=== PATIENT | male | born 1965 | race Two or more races ===

== ENCOUNTER 2017-03-03 22:26 | Emergency (ER) | payer OTHER ==
[~2017-03-03] VITALS: Ht 180.3 cm; Wt 83.9 kg
--- NOTE | 2017-03-03 22:55 | NUR ---
PT PRESENTED TO THE ER WITH A C/O RLQ ABD PAIN. TENDERNESS UPON PALPATION BY .
[2017-03-03] MEDS ORDERED: MORPHINE SULFATE INJ 2 MG/ML DISP.SYRIN IV ONE (23:00)
[2017-03-03] MEDS ORDERED: IV NS 0.9% 500 ML BAG IV ONE (23:00)
[2017-03-03] MEDS ORDERED: ONDANSETRON HCL/PF 4 MG/2 ML VIAL IVP ONE (23:00)
[2017-03-03] MEDS ORDERED: IV SET PRIMARY 1 EA INFUS.SET MC ONE (23:06)
[2017-03-03] MEDS ORDERED: ONDANSETRON HCL/PF 4 MG/2 ML VIAL ONE (23:06)
[2017-03-03] MEDS ORDERED: MORPHINE SULFATE INJ 4 MG/ML DISP.SYRIN ONE (23:06)
[2017-03-03] MEDS ORDERED: IV NS 0.9% 500 ML IV ONE (23:06)
[2017-03-03 23:10] LABS: BASOPHILS # (AUTO) 0.1 /CMM (0.0-0.2); BASOPHILS % (AUTO) 0.8 % (0.0-2.0); EOSINOPHILS # (AUTO) 0.2 /CMM (0.0-0.7); EOSINOPHILS % (AUTO) 3.1 % (0.0-6.0); HEMATOCRIT 46 % (39-51); HEMOGLOBIN 15.6 g/dL (13.5-17.5); LYMPHOCYTES # (AUTO) 2.6 /CMM (0.8-4.8); LYMPHOCYTES % (AUTO) 36.6 % (20.0-44.0); MEAN CORPUSCULAR HEMOGLOBIN 30 PG (26.0-33.0); MEAN CORPUSCULAR HGB CONC 34 g/dl (31.0-36.0); MEAN CORPUSCULAR VOLUME 88 fL (80-96); MONOCYTES # (AUTO) 0.7 /CMM (0.1-1.30); MONOCYTES % (AUTO) 10.5 % (2.0-12.0); NEUTROPHILS # (AUTO) 3.4 /CMM (1.8-8.9); PLATELET COUNT (AUTO) 194 /CMM (150-450); RDW COEFFICIENT OF VARIATION 13.1 (11.5-15.0); RED BLOOD CELL COUNT(AUTO) 5.16 MIL/uL (4.5-6.0)
[2017-03-03 23:14] LABS: BILIRUBIN,URINE NEGATIVE (NEGATIVE); BLOOD, URINE NEGATIVE Ery/uL (NEGATIVE); COLOR,URINE YELLOW (YELLOW); KETONES,URINE NEGATIVE (NEGATIVE); LEUKOCYTE ESTERASE ,URINE TRACE (NEGATIVE); NITRITE, URINE NEGATIVE (NEGATIVE); PH,URINE 6.5 (5.0-8.0); PROTEIN,URINE NEGATIVE (NEGATIVE); UGLUCOSE NEGATIVE (NEGATIVE); UROBILINOGEN,URINE 0.2 EU/dL (0.2)
[2017-03-03 23:17] LABS: APPEARANCE,URINE CLEAR (CLEAR)
[2017-03-03 23:20] LABS: CALCIUM, SERUM 8.9 mg/dL (8.5-10.1); CARBON DIOXIDE 29 mmol/L (21-32); CHLORIDE 106 mmol/L (98-107); CREATININE 1.1 mg/dL (0.6-1.3); GFR 70 mL/min (>60); GLUCOSE 109 mg/dL (74-106); SODIUM SERUM 142 mmol/L (136-145); UREA NITROGEN, BLOOD 15 mg/dL (7-18)
[2017-03-03 23:24] LABS: ADD URINE CULTURE NO; BACTERIA,URINE None seen /HPF (None Seen); INR 0.97 (0.87-1.13); PROTHROMBIN TIME 10.4 SECS (9.5-12.7); RBC,URINE 0-2 /HPF (0-2); SQUAMOUS EPITHELIAL CELL,UR Rare /HPF (None Seen); WBC,URINE 1=3 /HPF (0-3)
[2017-03-03 23:25] LABS: MUCUS,URINE Many /LPF (None Seen)
[2017-03-03 23:26] LABS: ALANINE AMINOTRANSFERASE 48 U/L (12-78); ALBUMIN 4.1 g/dL (3.4-5.0); ALKALINE PHOSPHATASE 69 U/L (46-116); ASPARTATE AMINOTRANSFERASE 20 U/L (15-37); BILIRUBIN,DIRECT 0.1 mg/dL (0.0-0.2); BILIRUBIN,TOTAL 0.5 mg/dL (0.2-1.0); LIPASE 148 U/L (73-393)
[2017-03-03 23:28] LABS: TROPONIN I < 0.017 ng/mL (0.00-0.056)
--- NOTE | 2017-03-03 23:32 | NUR ---
PT LEFT FOR CT VIA GURNEY.
[2017-03-03 23:37] LABS: TOTAL PROTEIN, SERUM 7.2 g/dL (6.4-8.2)
--- NOTE | 2017-03-03 23:44 | NUR ---
PT RETURNED FROM CT.
[2017-03-04] MEDS ORDERED: MORPHINE SULFATE INJ 4 MG/ML DISP.SYRIN ONE (00:23)
--- NOTE | 2017-03-04 00:50 | NUR ---
IV removed. Catheter intact and site benign. Pressure and 4x4 applied to site. No bleeding noted.
--- NOTE | 2017-03-04 00:51 | NUR ---
PT IS CALLING [facility] TO PICK HIM UP.
--- NOTE | 2017-03-04 01:06 | NUR ---
Patient discharged to home in stable condition. Written and verbal after care instructions given. Patient verbalizes understanding of instruction. PT REC'D A COPY OF ALL LABS, IMAGING, AND THE EKG. PT AMBULATED TO THE LOBBY TO WAIT FOR [facility] TO ARRIVE. VSS
[2017-03-04 01:08] VITALS: BP 161/97
[2017-03-04] MEDS ORDERED: MORPHINE SULFATE INJ 2 MG/ML DISP.SYRIN IV ONE (01:30)
== END 2017-03-04 01:09 | disposition home or self-care (01) ==
LOC: ER 22:29
DX: R10.30 Lower abdominal pain, unspecified (principal); K76.0 Fatty (change of) liver, not elsewhere classified; Z90.89 Acquired absence of other organs; C18.9 Malignant neoplasm of colon, unspecified
CPT/HCPCS: 36415; 74176; 80048; 80076; 81001; 83690; 84484; 85025; 85730; 93005; 96374; 96375; 96376; 99285; A4606; J2270 ×2; J2405; J7040; Z7610; 81000-TC

== ENCOUNTER 2017-04-07 22:53 | Emergency (ER) | payer OTHER ==
[~2017-04-07] VITALS: Ht 180.3 cm; Wt 83.9 kg
--- NOTE | 2017-04-08 00:23 | NUR ---
to bed 2 ambulatory c/o abdominal pain with abdominal distention since yesterday. pt aaox4 no acute distress noted, resp even and unlabored. pending er md archibald.
--- NOTE | 2017-04-08 00:25 | NUR ---
montez ely at bedside to dragan pederson.
[2017-04-08] MEDS ORDERED: ONDANSETRON HCL/PF 4 MG/2 ML VIAL IVP ONE (00:30)
[2017-04-08] MEDS ORDERED: IV NS 0.9% 500 ML BAG IV ONE (00:30)
[2017-04-08] MEDS ORDERED: MORPHINE SULFATE INJ 2 MG/ML DISP.SYRIN IV ONE (00:30)
--- NOTE | 2017-04-08 00:33 | NUR ---
pt transported to raidiology.
[2017-04-08 00:43] LABS: BASOPHILS % (AUTO) 0.2 % (0.0-2.0); EOSINOPHILS % (AUTO) 0.2 % (0.0-6.0); HEMATOCRIT 42 % (39-51); HEMOGLOBIN 14.5 g/dL (13.5-17.5); LYMPHOCYTES # (AUTO) 1.4 /CMM (0.8-4.8); LYMPHOCYTES % (AUTO) 18.9 % (20.0-44.0); MEAN CORPUSCULAR HEMOGLOBIN 30 PG (26.0-33.0); MEAN CORPUSCULAR HGB CONC 34 g/dl (31.0-36.0); MEAN CORPUSCULAR VOLUME 89 fL (80-96); MONOCYTES # (AUTO) 0.7 /CMM (0.1-1.30); MONOCYTES % (AUTO) 9.2 % (2.0-12.0); NEUTROPHILS # (AUTO) 5.3 /CMM (1.8-8.9); NEUTROPHILS % (AUTO) 71.5 % (43.0-81.0); PLATELET COUNT (AUTO) 195 /CMM (150-450); RED BLOOD CELL COUNT(AUTO) 4.76 MIL/uL (4.5-6.0); WHITE BLOOD COUNT (AUTO) 7.4 K/uL (4.3-11.0)
[2017-04-08 00:54] LABS: CALCIUM, SERUM 8.7 mg/dL (8.5-10.1); CREATININE 0.9 mg/dL (0.6-1.3); POTASSIUM 3.6 mmol/L (3.5-5.1)
--- NOTE | 2017-04-08 00:55 | NUR ---
pt back from radiology
[2017-04-08 01:02] LABS: ALBUMIN 3.8 g/dL (3.4-5.0); BILIRUBIN,DIRECT 0.1 mg/dL (0.0-0.2); BILIRUBIN,TOTAL 0.8 mg/dL (0.2-1.0)
[2017-04-08 01:41] LABS: INR 1.04 (0.87-1.13); PROTHROMBIN TIME 11.1 SECS (9.5-12.7)
[2017-04-08 01:56] LABS: APPEARANCE,URINE CLOUDY (CLEAR); BILIRUBIN,URINE 1+ (NEGATIVE); BLOOD, URINE 3+ Ery/uL (NEGATIVE); COLOR,URINE YELLOW (YELLOW); KETONES,URINE NEGATIVE (NEGATIVE); LEUKOCYTE ESTERASE ,URINE NEGATIVE (NEGATIVE); NITRITE, URINE NEGATIVE (NEGATIVE); PROTEIN,URINE TRACE mg/dl (NEGATIVE); UGLUCOSE NEGATIVE (NEGATIVE)
[2017-04-08 01:59] LABS: RBC,URINE 81-100 /HPF (0-2); WBC,URINE 0-2 /HPF (0-3)
[2017-04-08 02:00] LABS: ADD URINE CULTURE NO; BACTERIA,URINE None seen /HPF (None Seen); MUCUS,URINE Rare /LPF (None Seen); SQUAMOUS EPITHELIAL CELL,UR Rare /HPF (None Seen)
[2017-04-08 02:39] VITALS: BP 137/79
--- NOTE | 2017-04-08 02:39 | NUR ---
IV removed. Catheter intact and site benign. Pressure and 4x4 applied to site. No bleeding noted. Patient discharged to home in stable condition. Written and verbal after care instructions given. Patient verbalizes understanding of instruction. ambulatory with a steady gait
== END 2017-04-08 02:40 | disposition home or self-care (01) ==
LOC: ER 22:53
DX: R10.84 Generalized abdominal pain (principal); G89.29 Other chronic pain; K76.0 Fatty (change of) liver, not elsewhere classified; M54.9 Dorsalgia, unspecified; Z85.038 Personal history of other malignant neoplasm of large intestine; Z90.89 Acquired absence of other organs
CPT/HCPCS: 36415; 74176; 80048; 80076; 81001; 83690; 85025; 85730; 99285; A4606; Z7610; 81000-TC

== ENCOUNTER 2021-06-21 10:23 | Inpatient (IN) | payer SELFPAY, OTHER ==
[~2021-06-21] VITALS: Ht 180.3 cm; Wt 94.8 kg
--- NOTE | 2021-06-21 10:35 | NUR ---
BIB RA FROM HOME,WORSENING COUGH AND RIGHT LOWER RIBCAGE PAIN,TESTED (+) TO COVID 19 , C/O RIGHT EAR PAIN 10/10, HAVING TROUBLE CATCHING BREATH. ALERT AND ORIENTED X4. IV STARTED AT LEFT AC 20G. BLOOD WORK TAKEN AND SENT TO LAB.
--- NOTE | 2021-06-21 10:38 | NUR ---
DR WEBSTER AT BEDSIDE.
--- NOTE | 2021-06-21 10:40 | NUR ---
COVID TEST TAKEN, AND SENT TO LAB.
[2021-06-21] MEDS ORDERED: KETOROLAC TROMETHAMINE INJ 30 MG/ML VIAL ONE (10:54)
--- NOTE | 2021-06-21 10:58 | NUR ---
URINE SENT TO LAB
[2021-06-21 11:00] LABS: BASOPHILS % (AUTO) 0.3 % (0.0-2.0); HEMATOCRIT 42 % (39-51); HEMOGLOBIN 14.6 g/dL (13.5-17.5); LYMPHOCYTES # (AUTO) 1.3 K/uL (0.8-4.8); LYMPHOCYTES % (AUTO) 27.1 % (20.0-44.0); MEAN CORPUSCULAR HGB CONC 35 g/dl (31.0-36.0); MEAN CORPUSCULAR VOLUME 85 fL (80-96); MONOCYTES # (AUTO) 0.3 K/uL (0.1-1.30); MONOCYTES % (AUTO) 5.4 % (2.0-12.0); NEUTROPHILS # (AUTO) 3.2 K/uL (1.8-8.9); NEUTROPHILS % (AUTO) 67.2 % (43.0-81.0); PLATELET COUNT (AUTO) 176 K/uL (150-450); RED BLOOD CELL COUNT(AUTO) 4.99 MIL/uL (4.5-6.0); WHITE BLOOD COUNT (AUTO) 4.7 K/uL (4.3-11.0)
[2021-06-21] MEDS ORDERED: KETOROLAC TROMETHAMINE INJ 30 MG/ML VIAL IV ONE (11:00)
[2021-06-21 11:10] LABS: CARBON DIOXIDE 24 mmol/L (21-32); CHLORIDE 103 mmol/L (98-107); GLUCOSE 96 mg/dL (74-106); POTASSIUM 3.6 mmol/L (3.5-5.1); SODIUM SERUM 140 mmol/L (136-145); UREA NITROGEN, BLOOD 15 mg/dL (7-18)
[2021-06-21 11:16] LABS: ALANINE AMINOTRANSFERASE 27 U/L (12-78); ALBUMIN 3.5 g/dL (3.4-5.0); ALKALINE PHOSPHATASE 67 U/L (46-116); ASPARTATE AMINOTRANSFERASE 24 U/L (15-37); BILIRUBIN,DIRECT 0.2 mg/dL (0.0-0.2); BILIRUBIN,TOTAL 0.6 mg/dL (0.2-1.0); TOTAL PROTEIN, SERUM 7.5 g/dL (6.4-8.2)
[2021-06-21 11:24] LABS: BILIRUBIN,URINE SMALL (NEGATIVE); COLOR,URINE YELLOW (YELLOW); LEUKOCYTE ESTERASE ,URINE Negative (NEGATIVE); NITRITE, URINE Negative (NEGATIVE); PROTEIN,URINE 30 mg/dl (NEGATIVE); UGLUCOSE Negative (NEGATIVE)
[2021-06-21 11:29] LABS: BACTERIA,URINE Few /HPF (None Seen); MUCUS,URINE Few /LPF (None Seen); WBC,URINE 0-2 /HPF (0-3)
[2021-06-21] MEDS ORDERED: DEXAMETHASONE SOD PHOSPHATE 10 MG/ML VIAL IV ONE (11:30)
[2021-06-21] MEDS ORDERED: DEXAMETHASONE SOD PHOSPHATE 10 MG/ML VIAL ONE (12:00)
--- NOTE | 2021-06-21 12:20 | NUR ---
PANEL ON-CALL PAGED
--- NOTE | 2021-06-21 12:28 | NUR ---
MOVE SHEET SUBMITTED.
--- NOTE | 2021-06-21 13:33 | NUR ---
PATIENT WILL GO TO RM 110.
--- NOTE | 2021-06-21 13:34 | NUR ---
ROOM GIVEN 110
--- NOTE | 2021-06-21 13:51 | NUR ---
REPORT GIVEBN TO IRVIN ASHLEY FOR LISETTE
--- NOTE | 2021-06-21 14:31 | NUR ---
patient transferred to room 110 in stable condition.
--- NOTE | 2021-06-21 14:35 | NUR ---
RN NOTE RECEIVED PATIENT FROM ER FOR ADMISSION TO ROOM 110.
[2021-06-21] MEDS ORDERED: ONDANSETRON HCL/PF 4 MG/2 ML VIAL IVP PRN (15:30)
[2021-06-21] MEDS ORDERED: ACETAMINOPHEN 325 MG TABLET PO PRN (15:30)
[2021-06-21] MEDS ORDERED: MAGNESIUM HYDROXIDE 30 ML UDC PO PRN (15:30)
[2021-06-21] MEDS ORDERED: MAG HYDROX/AL HYDROX/SIMETH 30 ML UDC PO PRN (15:30)
[2021-06-21] MEDS ORDERED: ZOLPIDEM TARTRATE 5 MG TABLET PO PRN (15:30)
[2021-06-21] MEDS ORDERED: Z GUARD REMEDY 2 OZ OINT TP PRN (15:30)
[2021-06-21 16:00] VITALS: BP 103/72
[2021-06-21] MEDS: CEFTRIAXONE 1 G in IV D5W 50 ML IV SCH (16:23)
[2021-06-21] MEDS: ENOXAPARIN SODIUM 40 MG/0.4 ML DISP.SYRIN SQ SCH (16:31)
--- NOTE | 2021-06-21 18:27 | NUR ---
RN NOTE PATIENT OBSERVED IN BED, ALERT/ORIENTED X4, ABLE TO VERBALIZE NEEDS, BREATHING EVEN AND UNLABORED, ON O2 VIA NC AT 3 LMP O2 SAT OF 98% CONTINENT ON BOWEL AND BLADDER, ON ATB THERAPY NO ASE NOTED, IV ON LEFT AC GAUGE 20 PATENT INFUSING WELL, PATIENT ON DECADRON STEROID ORDERED, BED ALARM ON, CALL LIGHT WITHIN REACH, BED WHEELS LOCK, WILL CONTINUE TO MONITOR, WILL ENDORSE TO NOC SHIFT.
[2021-06-22 04:00] VITALS: BP 125/57
[2021-06-22 06:53] LABS: CALCIUM, SERUM 8.8 mg/dL (8.5-10.1); CREATININE 1.1 mg/dL (0.6-1.3); MAGNESIUM 2.2 mg/dL (1.8-2.4); POTASSIUM 4.4 mmol/L (3.5-5.1)
[2021-06-22 07:13] LABS: BASOPHILS % (AUTO) 0.1 % (0.0-2.0); HEMATOCRIT 40 % (39-51); HEMOGLOBIN 13.9 g/dL (13.5-17.5); LYMPHOCYTES # (AUTO) 0.6 K/uL (0.8-4.8); LYMPHOCYTES % (AUTO) 9.8 % (20.0-44.0); MEAN CORPUSCULAR HGB CONC 35 g/dl (31.0-36.0); MEAN CORPUSCULAR VOLUME 86 fL (80-96); MONOCYTES # (AUTO) 0.5 K/uL (0.1-1.30); MONOCYTES % (AUTO) 8.9 % (2.0-12.0); NEUTROPHILS # (AUTO) 4.9 K/uL (1.8-8.9); NEUTROPHILS % (AUTO) 81.2 % (43.0-81.0); PLATELET COUNT (AUTO) 189 K/uL (150-450)
--- NOTE | 2021-06-22 07:22 | NUR ---
RN NOTE PATIENT OBSERVED IN BED, ALERT/ORIENTED X4, ABLE TO VERBALIZE NEEDS, BREATHING EVEN AND UNLABORED, ON O2 VIA NC AT 3 LMP O2 SAT OF 97% CONTINENT ON BOWEL AND BLADDER, ON ATB THERAPY NO ASE NOTED, IV ON LEFT AC GAUGE 20 PATENT INFUSING WELL, PATIENT ON DECADRON STEROID ORDERED, BED ALARM ON, CALL LIGHT WITHIN REACH, BED WHEELS LOCK, WILL CONTINUE TO MONITOR,
[2021-06-22 08:00] VITALS: BP 188/77
[2021-06-22] MEDS: DEXAMETHASONE SOD PHOSPHATE 10 MG/ML VIAL IV SCH (08:54)
[2021-06-22] MEDS: ENOXAPARIN SODIUM 40 MG/0.4 ML DISP.SYRIN SQ SCH (08:57)
--- NOTE | 2021-06-22 10:09 | NUR ---
RN NOTE PATIENT SEEN BY DR. GREEN,UPDATED MD REGARDING PATIENT CURRENT CONDITION. PATIENT ON O2 VIA NC 2LPM O2 SAT OF 96%, PER MD OK TO BE ON ROOM AIR KEEP O2 SAT >92%, WILL CONTINUE TO MONITOR.
--- NOTE | 2021-06-22 11:01 | NUR ---
RN NOTE PATIENT SEEN BY DR. TRACY UPDATED REGARDING PATIENT CURRENT CONDITION, WILL CONTINUE TO MONITOR PATIENT.
[2021-06-22] MEDS ORDERED: IOHEXOL-350 100 ML VIAL IV ONE (11:53)
[2021-06-22] MEDS ORDERED: CT SWABBABLE VALVE TRANS SET 1 EA INFUS.SET MC ONE (11:53)
[2021-06-22] MEDS ORDERED: IV NS 0.9% 250 ML IV ONE (11:53)
--- NOTE | 2021-06-22 12:07 | NUR ---
RN NOTE CT PULMONARY ANGIOGRAPHY DONE ORDERED.
[2021-06-22 16:00] VITALS: BP 118/77
[2021-06-22] MEDS: CEFTRIAXONE 1 G in IV D5W 50 ML IV SCH (16:14)
[2021-06-22] MEDS ORDERED: REMDESIVIR (CHARGED) 200 MG, *LOADING DOSE 1 EA in IV NS 0.9% 210 ML IV ONE (18:00)
--- NOTE | 2021-06-22 18:41 | NUR ---
RN NOTE PATIENT OBSERVED IN BED, ALERT/ORIENTED X4, ABLE TO VERBALIZE NEEDS, BREATHING EVEN AND UNLABORED, ON O2 VIA NC AT 2 LMP O2 SAT OF 97%, PATIENT WAS ON ROOM AIR TOLERATED KEEP O2 SATURATION > 92%, PATIENT RESUMED NC AT 2LPM AFTER A FEW HOURS OF BEING ROOM AIR, CONTINENT ON BOWEL AND BLADDER, ON ATB THERAPY NO ASE NOTED, IV ON LEFT AC GAUGE 20 PATENT INFUSING WELL, ON IV REMDESIVIR AT THIS TIME, NO ASE NOTED., PATIENT ON DECADRON STEROID ORDERED, ON BLOOD THINNER NO BLEEDING NOTED, BED ALARM ON, CALL LIGHT WITHIN REACH, BED WHEELS LOCK, WILL CONTINUE TO MONITOR, WILL ENDORSE TO NOC SHIFT.
[2021-06-23 04:00] VITALS: BP 111/80
[2021-06-23 06:53] LABS: BASOPHILS % (AUTO) 0.1 % (0.0-2.0); HEMATOCRIT 39 % (39-51); HEMOGLOBIN 13.7 g/dL (13.5-17.5); LYMPHOCYTES # (AUTO) 0.9 K/uL (0.8-4.8); MEAN CORPUSCULAR HGB CONC 35 g/dl (31.0-36.0); MEAN CORPUSCULAR VOLUME 86 fL (80-96); MONOCYTES # (AUTO) 0.7 K/uL (0.1-1.30); MONOCYTES % (AUTO) 11.5 % (2.0-12.0); NEUTROPHILS # (AUTO) 4.6 K/uL (1.8-8.9); NEUTROPHILS % (AUTO) 74.4 % (43.0-81.0); PLATELET COUNT (AUTO) 207 K/uL (150-450); RED BLOOD CELL COUNT(AUTO) 4.57 MIL/uL (4.5-6.0); WHITE BLOOD COUNT (AUTO) 6.2 K/uL (4.3-11.0)
[2021-06-23 07:20] LABS: ALBUMIN 3.1 g/dL (3.4-5.0); BILIRUBIN,DIRECT 0.2 mg/dL (0.0-0.2); BILIRUBIN,TOTAL 0.4 mg/dL (0.2-1.0); CALCIUM, SERUM 8.3 mg/dL (8.5-10.1); POTASSIUM 3.9 mmol/L (3.5-5.1)
[2021-06-23] MEDS: DEXAMETHASONE SOD PHOSPHATE 10 MG/ML VIAL IV SCH (08:26)
[2021-06-23] MEDS: ENOXAPARIN SODIUM 40 MG/0.4 ML DISP.SYRIN SQ SCH (08:26)
--- NOTE | 2021-06-23 09:26 | NUR ---
RN NOTE HOB AT SEMI FOWLERS POSITION. PATIENT IS ON 2L NC WITH NO SIGNS OF LABORED BREATHING. PATIENT IS AOX4. LAC 18G IS PATENT AND INTACT. BED IS LOCKED IN THE LOWEST POSITION, 3 GUARD RAILS RAISED, CALL ROBERSON WITHIN REACH, AND ALL HOSPITAL SAFETY PRECAUTIONS ARE BEING FOLLOWED. WILL CONTINUE TO MONITOR THROUGHOUT SHIFT.
[2021-06-23] MEDS: HYDROCODONE BIT/HOMATROPINE 5 ML UDC PO PRN (09:45)
[2021-06-23 12:00] VITALS: BP 109/75
[2021-06-23] MEDS: CEFTRIAXONE 1 G in IV D5W 50 ML IV SCH (15:19)
[2021-06-23 16:00] VITALS: BP 111/71
[2021-06-23] MEDS: REMDESIVIR (CHARGED) 100 MG in IV NS 0.9% 100 ML IV SCH (18:42)
--- NOTE | 2021-06-23 18:55 | NUR ---
RN NOTE HOB AT SEMI FOWLERS POSITION. PATIENT IS ON RA NC WITH NO SIGNS OF LABORED BREATHING. PATIENT IS AOX4. LAC 18G IS PATENT AND INTACT. BED IS LOCKED IN THE LOWEST POSITION, 3 GUARD RAILS RAISED, CALL ROBERSON WITHIN REACH, AND ALL HOSPITAL SAFETY PRECAUTIONS ARE BEING FOLLOWED. ALL DUE MEDS GIVEN AND PATIENT REMAINED STABLE THROUGHOUT SHIFT. WILL ENDORSE TO LINER MAN RN.
--- NOTE | 2021-06-23 19:30 | NUR ---
RN OPENING NOTES: RECEIVED PT A/OX4 IN BED RESTING COMFORTABLY. PATIENT IN NO S/SX OF ACUTE DISTRESS AT THIS TIME. NO SOB NOTED. PATIENT'S BREATHING IS EVEN AND UNLABORED. PATIENT IS ON 2L OF OXYGEN VIA NC; TOLERATING WELL. PATIENT ON TELE MONITORING READING SINUS RHYTHM HR IS @60s AT THE TIME OF RECEIVED. PATIENT ON REGULAR DIET; TOLERATES WELL. NOTED IV SITE ON L AC #20 ; PATENT, INTACT AND FLUSHING WELL; NO S/S OF INFECTION OR INFILTRATION. SAFETY MEASURES HAVE BEEN PROVIDED AND IMPLEMENTED. PATIENT BED ALARM IS ON. HEAD OF BED ELEVATED. BED IS LOCKED, IN LOWEST POSITION AND SIDE RAILS UP. CALL LIGHT WITHIN REACH OF THE PATIENT. APPLICABLE ISOLATION PRECAUTIONS IN PLACE. WILL CONTINUE TO MONITOR AND REASSESS FOR ANY CHANGES AND WILL CARRY OUT ANY ONGOING AND ACTIVE MD ORDER.
[2021-06-23 20:00] VITALS: BP 124/75
--- NOTE | 2021-06-23 23:00 | NUR ---
RN NOTES NO NOTED CHANGES IN PATIENT CONDITION AT THIS TIME; PATIENT VITALS STABLE, NO SIGNS OF ACUTE RESPIRATORY DISTRESS. AM PATIENT CARE RENDERED. VALENTINA ASHLEY MADE AWARE. WILL CONTINUE TO MONITOR AND REASSESS FOR ANY CHANGES THROUGHOUT THE SHIFT. Addendum: 06/24/21 at 0433 by PAVITHRA HUANG RN RN NOTES NO CHANGE IN PATIENT CONDITION AT THIS TIME PATIENT VITALS STABLE, NO SIGNS OF ACUTE RESPIRATORY DISTRESS. VALENTINA ASHLEY MADE AWARE. WILL CONTINUE TO MONITOR AND REASSESS FOR ANY CHANGES THROUGHOUT THE SHIFT.
[2021-06-24] VITALS: BP 101/53
[2021-06-24 04:00] VITALS: BP 110/77
--- NOTE | 2021-06-24 04:00 | NUR ---
RN NOTES NO NOTED CHANGES IN PATIENT CONDITION AT THIS TIME; PATIENT VITALS STABLE, NO SIGNS OF ACUTE RESPIRATORY DISTRESS. AM PATIENT CARE RENDERED. SPECIALIST MANAGERS MADE AWARE. WILL CONTINUE TO MONITOR AND REASSESS FOR ANY CHANGES THROUGHOUT THE SHIFT.
[2021-06-24 06:30] LABS: BASOPHILS % (AUTO) 0.1 % (0.0-2.0); EOSINOPHILS % (AUTO) 0.1 % (0.0-6.0); HEMATOCRIT 39 % (39-51); HEMOGLOBIN 13.4 g/dL (13.5-17.5); LYMPHOCYTES # (AUTO) 1.1 K/uL (0.8-4.8); LYMPHOCYTES % (AUTO) 18.3 % (20.0-44.0); MEAN CORPUSCULAR HGB CONC 35 g/dl (31.0-36.0); MEAN CORPUSCULAR VOLUME 86 fL (80-96); MONOCYTES % (AUTO) 16.5 % (2.0-12.0); PLATELET COUNT (AUTO) 233 K/uL (150-450); RED BLOOD CELL COUNT(AUTO) 4.52 MIL/uL (4.5-6.0); WHITE BLOOD COUNT (AUTO) 6.1 K/uL (4.3-11.0)
--- NOTE | 2021-06-24 06:47 | NUR ---
RN CLOSING NOTE: PATIENT REMAINS IN ROOM IN NO SIGNS OF RESPIRATORY DISTRESS, PATIENT STILL ON 2L OF 02 VIA NC; TOLERATING WELL SATURATING @ >95% SP02. SAFETY MEASURES IMPLEMENTED, BED IN LOWEST POSITION, LOCKED, SIDE RAILS UP, CALL LIGHT WITHIN REACH. ALL NEEDS AND ORDERS ADDRESSED DURING THE SHIFT. IV ACCESS MAINTAINED INTACT, SECURED AND FLUSHING WELL. ALL DUE MEDS GIVEN ORDERED & SCHEDULED ; PATIENT TOLERATED WELL. PATIENT KEPT CLEAN AND COMFORTABLE WITHIN THE SHIFT. PATIENT ENDORSED TO INCOMING SHIFT RN WITH STABLE VITAL SIGN AND FOR CONTINUITY OF CARE.
[2021-06-24 06:50] LABS: ALBUMIN 2.9 g/dL (3.4-5.0); BILIRUBIN,DIRECT 0.1 mg/dL (0.0-0.2); BILIRUBIN,TOTAL 0.3 mg/dL (0.2-1.0); CALCIUM, SERUM 8.6 mg/dL (8.5-10.1); POTASSIUM 4.1 mmol/L (3.5-5.1); TOTAL PROTEIN, SERUM 6.7 g/dL (6.4-8.2)
[2021-06-24 08:00] VITALS: BP 110/77
[2021-06-24] MEDS: DEXAMETHASONE SOD PHOSPHATE 10 MG/ML VIAL IV SCH (08:38)
[2021-06-24] MEDS: ENOXAPARIN SODIUM 40 MG/0.4 ML DISP.SYRIN SQ SCH (08:53)
[2021-06-24 09:09] LABS: LYMPHOCYTES % (MANUAL) 19 % (16-48); MONOCYTES % (MANUAL) 12 % (0-11.0); NEUTROPHILS % (MANUAL) 69 (42-76)
[2021-06-24 12:00] VITALS: BP 112/77
[2021-06-24] MEDS: CEFTRIAXONE 1 G in IV D5W 50 ML IV SCH (15:00)
[2021-06-24] MEDS: HYDROCODONE BIT/HOMATROPINE 5 ML UDC PO PRN (15:55)
[2021-06-24 16:00] VITALS: BP 116/71
[2021-06-24] MEDS: REMDESIVIR (CHARGED) 100 MG in IV NS 0.9% 100 ML IV SCH (18:14)
--- NOTE | 2021-06-24 19:30 | NUR ---
RN NOTE PT RECEIVED IN BED, A&OX4. PT CURRENTLY ON 2L OF O2 VIA NC SHOWING NO S/S OF RESPIRATORY DISTRESS. PT IS ON TELE MONITOR WITH HR IN 60s. PT ON REGULAR DIET. PT MENTIONED HOW IV SITE WAS BURNING, ADAPTED PHYSICAL EDUCATION AIDE SHYLA CHANGED IV SITE TO LEFT HAND. IV LINE FLUSHED, PATENT, AND INTACT W/ NO SIGNS OF INFILTRATION. ALL SAFETY MEASURES IMPLEMENTED. BED ALARM ON. CALL LIGHT WITHIN REACH. BED LOCKED AND IN LOWEST POSITION. WILL CONTINUE TO MONITOR THROUGHOUT THE SHIFT.
[2021-06-24 20:00] VITALS: BP 147/57
[2021-06-25] VITALS (8 sets, daily range): BP systolic 105–130; BP diastolic 62–78
--- NOTE | 2021-06-25 06:41 | NUR ---
RN NOTE NO CHANGES IN PT CONDITION THROUGHOUT THE SHIFT. PT IS ON 4L OF 02 VIA NC SHOWING NO S/S OF RESPIRATORY DISTRESS. CURRENTLY A&OX4. PT IS ON TELE MONITOR WITH HR FROM HIGH 50S TO HIGH 60S. SKIN IS INTACT. PT HAS IV LINE ON LEFT, FLUSHED, PATENT, AND INTACT. ALL DUE MEDS GIVEN ORDERED. PT KEPT CLEAN AND COMFORTABLE. ALL SAFETY MEASURES IMPLEMENTED. WILL ENDORSE TO MORNING SHIFT RN FOR LISETTE.
[2021-06-25 06:57] LABS: BASOPHILS % (AUTO) 0.1 % (0.0-2.0); HEMATOCRIT 40 % (39-51); HEMOGLOBIN 13.8 g/dL (13.5-17.5); LYMPHOCYTES # (AUTO) 1.1 K/uL (0.8-4.8); LYMPHOCYTES % (AUTO) 13.8 % (20.0-44.0); MEAN CORPUSCULAR HGB CONC 35 g/dl (31.0-36.0); MEAN CORPUSCULAR VOLUME 85 fL (80-96); MONOCYTES % (AUTO) 13.6 % (2.0-12.0); NEUTROPHILS # (AUTO) 5.6 K/uL (1.8-8.9); NEUTROPHILS % (AUTO) 72.5 % (43.0-81.0); PLATELET COUNT (AUTO) 260 K/uL (150-450); RED BLOOD CELL COUNT(AUTO) 4.69 MIL/uL (4.5-6.0); WHITE BLOOD COUNT (AUTO) 7.7 K/uL (4.3-11.0)
[2021-06-25 06:59] LABS: BILIRUBIN,DIRECT 0.1 mg/dL (0.0-0.2); BILIRUBIN,TOTAL 0.3 mg/dL (0.2-1.0); CALCIUM, SERUM 8.8 mg/dL (8.5-10.1); POTASSIUM 4.1 mmol/L (3.5-5.1)
--- NOTE | 2021-06-25 07:30 | NUR ---
RN AM NOTES: PT IN BED, PT A/OX4 IN BED RESTING COMFORTABLY. PATIENT IN NO S/SX OF ACUTE DISTRESS AT THIS TIME. NO SOB NOTED. PATIENT'S BREATHING IS EVEN AND UNLABORED. PATIENT IS ON 4L OF OXYGEN VIA NC; TOLERATING WELL. PATIENT ON TELE MONITORING READING SINUS RHYTHM HR IS @60s AT THE TIME OF RECEIVED. PATIENT ON REGULAR DIET; TOLERATES WELL. NOTED IV SITE ON L AC #20 ; PATENT, INTACT AND FLUSHING WELL; NO S/S OF INFECTION OR INFILTRATION. SAFETY MEASURES HAVE BEEN PROVIDED AND IMPLEMENTED. PATIENT BED ALARM IS ON. HEAD OF BED ELEVATED. BED IS LOCKED, IN LOWEST POSITION AND SIDE RAILS UP. CALL LIGHT WITHIN REACH OF THE PATIENT. APPLICABLE ISOLATION PRECAUTIONS IN PLACE. WILL CONTINUE TO MONITOR AND REASSESS FOR ANY CHANGES AND WILL CARRY OUT ANY ONGOING AND ACTIVE MD ORDER.
--- NOTE | 2021-06-25 09:30 | NUR ---
RN NOTES DUE MEDS GIVEN
[2021-06-25] MEDS: DEXAMETHASONE SOD PHOSPHATE 10 MG/ML VIAL IV SCH (09:41)
[2021-06-25] MEDS: ENOXAPARIN SODIUM 40 MG/0.4 ML DISP.SYRIN SQ SCH (09:44)
[2021-06-25] MEDS: HYDROCODONE BIT/HOMATROPINE 5 ML UDC PO PRN (14:20)
[2021-06-25] MEDS: CEFTRIAXONE 1 G in IV D5W 50 ML IV SCH (17:30)
[2021-06-25] MEDS: REMDESIVIR (CHARGED) 100 MG in IV NS 0.9% 100 ML IV SCH (18:02)
--- NOTE | 2021-06-25 19:19 | NUR ---
RN NOTES ALL NEEDS MET AT THIS TIME. PATIENT RESTING COMFORTABLY. NOT IN ANY DISTRESS. ISOLATION PRECAUTION OBSERVED. SAFETY MEASURES IN PLACE. WILL ENDORSED TO NEXT SHIFT
--- NOTE | 2021-06-25 19:58 | NUR ---
consultant internship Opening Notes Patient was last seen awake in bed resting. Patient's alert and oriented x4. Patient's on 4 liters of oxygen/minute via nasal cannula with no respiratory distress noted. Patient's connected to a tele monitor with no cardiac distress noted. Patient has an IV access on his left hand gauge #22. Patient's in no acute distress at this time. Safety measures in place: Bed locked, side rails up x2, and call light within reach of the patient. Will continue to monitor the patient.
[2021-06-26 02:12] VITALS: BP 103/64
[2021-06-26 04:00] VITALS: BP 101/70
--- NOTE | 2021-06-26 06:36 | NUR ---
bicycle designer Closing Notes Patient was last seen sleeping in bed. Patient's alert and oriented x4. Patient's on 4 liters of oxygen/minute via nasal cannula with no respiratory distress noted. Patient's connected to a tele monitor with no cardiac distress noted. Patient has a saline lock on his left hand gauge #22, which is currently intact, patent and flushes well. Patient's in no acute distress at this time. Safety measures in place: Bed locked, side rails up x2, and call light within reach of the patient. Will endorse care to the day shift nurse.
[2021-06-26 07:08] LABS: BASOPHILS # (AUTO) 0.1 K/uL (0.0-0.2); EOSINOPHILS % (AUTO) 0.4 % (0.0-6.0); HEMATOCRIT 40 % (39-51); LYMPHOCYTES # (AUTO) 1.6 K/uL (0.8-4.8); LYMPHOCYTES % (AUTO) 19.6 % (20.0-44.0); MEAN CORPUSCULAR HGB CONC 35 g/dl (31.0-36.0); MEAN CORPUSCULAR VOLUME 86 fL (80-96); MONOCYTES # (AUTO) 1.1 K/uL (0.1-1.30); MONOCYTES % (AUTO) 13.2 % (2.0-12.0); NEUTROPHILS # (AUTO) 5.5 K/uL (1.8-8.9); NEUTROPHILS % (AUTO) 65.8 % (43.0-81.0); PLATELET COUNT (AUTO) 243 K/uL (150-450); RED BLOOD CELL COUNT(AUTO) 4.66 MIL/uL (4.5-6.0); WHITE BLOOD COUNT (AUTO) 8.4 K/uL (4.3-11.0)
[2021-06-26 07:29] LABS: ALBUMIN 2.7 g/dL (3.4-5.0); BILIRUBIN,DIRECT 0.1 mg/dL (0.0-0.2); BILIRUBIN,TOTAL 0.3 mg/dL (0.2-1.0); CALCIUM, SERUM 8.5 mg/dL (8.5-10.1); CREATININE 1.2 mg/dL (0.6-1.3); POTASSIUM 4.1 mmol/L (3.5-5.1); TOTAL PROTEIN, SERUM 6.5 g/dL (6.4-8.2)
--- NOTE | 2021-06-26 07:30 | NUR ---
RN AM NOTES: PT IN BED, PT A/OX4 IN BED RESTING COMFORTABLY. PATIENT IN NO S/SX OF ACUTE DISTRESS AT THIS TIME. NO SOB NOTED. PATIENT'S BREATHING IS EVEN AND UNLABORED. PATIENT IS ON 4L OF OXYGEN VIA NC; TOLERATING WELL. PATIENT ON TELE MONITORING READING SINUS YUNIOR HR IS 51. DENIES PAIN OR DISCOMFORT AT THIS TIME.PATIENT ON REGULAR DIET; TOLERATES WELL. NOTED IV SITE ON L DONATO #22 ; PATENT, INTACT AND FLUSHING WELL; NO S/S OF INFECTION OR INFILTRATION. SAFETY MEASURES HAVE BEEN PROVIDED AND IMPLEMENTED. PATIENT BED ALARM IS ON. HEAD OF BED ELEVATED. BED IS LOCKED, IN LOWEST POSITION AND SIDE RAILS UP. CALL LIGHT WITHIN REACH OF THE PATIENT. APPLICABLE ISOLATION PRECAUTIONS IN PLACE. WILL CONTINUE TO MONITOR AND REASSESS FOR ANY CHANGES AND WILL CARRY OUT ANY ONGOING AND ACTIVE MD ORDER.
[2021-06-26 08:00] VITALS: BP 102/70
[2021-06-26] MEDS: DEXAMETHASONE SOD PHOSPHATE 10 MG/ML VIAL IV SCH (09:11)
[2021-06-26] MEDS: ENOXAPARIN SODIUM 40 MG/0.4 ML DISP.SYRIN SQ SCH (09:12)
--- NOTE | 2021-06-26 09:30 | NUR ---
RN NOTES DUE MEDS GIVEN
[2021-06-26] MEDS ORDERED: METH4TAB17 PO (10:57)
--- NOTE | 2021-06-26 11:29 | NUR ---
OXYGEN ON R/A AT REST 87%
[2021-06-26 12:00] VITALS: BP 108/70
--- NOTE | 2021-06-26 13:50 | NUR ---
RN NOTES PATIENT REQUESTED FOR REPEAT COVID TEST PRIOR TO DISCHARGE.
[2021-06-26] MEDS ORDERED: REMDESIVIR (CHARGED) 100 MG in IV NS 0.9% 100 ML IV SCH (15:00)
[2021-06-26 16:00] VITALS: BP 97/55
[2021-06-26] MEDS: CEFTRIAXONE 1 G in IV D5W 50 ML IV SCH (16:10)
--- NOTE | 2021-06-26 19:00 | NUR ---
RN NOTE RECEIVED PATIENT IN BED, AO X 4, IN NO S/SX OF ACUTE DISTRESS AT THIS TIME. BREATHING EVEN AND UNLABORED, SATURATION AT 98 % ON 4L VIA NC, SR ON THE MONITOR, HR IS 61. NOTED IV SITE AT L HAND 22G, PATENT AND FLUSHING WELL, NO S/S OF INFECTION OR INFILTRATION, SALINE LOCKED. SAFETY MEASURES IMPLEMENTED. HEAD OF BED ELEVATED. BED IS LOCKED, IN LOWEST POSITION AND SIDE RAILS UP. CALL LIGHT WITHIN REACH OF THE PATIENT. PATIENT AWAITING DISCHARGE. WILL CONTINUE TO MONITOR.
--- NOTE | 2021-06-26 19:15 | NUR ---
RN NOTES ALL NEEDS MET. PATIENT RESTING COMFORTABLY NOT IN ANY DISTRESS. CALL LIGHT WITHIN REACH. SAFETY MEASURES IN PLACE. WILL ENDORSE TO NEXT SHIFT FOR LISETTE. PATIENT FOR DISCHARGED AFTER IV ANTIBIOTIC. PROVIDED ALL PAPER WORKS, DISCHARGE INSTRUCTIONS AND HEALTH TEACHINGS. TO FOLLOW UP WITH PMD AND WILL MAKE OWN APPOINTMENT. ALL BELONGINGS CHECKED AND RETURNED. ALL PAPERWORKS SIGNED.
[2021-06-26 20:00] VITALS: BP 104/67
--- NOTE | 2021-06-26 20:50 | NUR ---
RN NOTE Patient given written and verbal discharge instructions. Patient verbalizes understanding of instructions. IV removed. Catheter intact and site benign. Pressure and 4x4 applied to site. No bleeding noted. Patient to home in stable condition via private vehicle accompanied by , breathing even and unlabored, saturation at 95% at 2 lpm via nasal cannula. statistical consultant aware.
== END 2021-06-26 20:59 | disposition home or self-care (01) | DRG 177 ==
LOC: ER 10:28 → MEDSG1 13:35 → TELE1 06-23 22:16
PROVIDERS: ADMIT Internal Medicine; ATTEND Internal Medicine
PROC: XW033E5 Introduction of Remdesivir Anti-infective into Peripheral Vein, Percutaneous Approach, New Technology Group 5 (ICD-10-PCS; principal; 2021-06-22)
DX: U07.1 COVID-19 (principal); J96.01 Acute respiratory failure with hypoxia; J12.82 Pneumonia due to coronavirus disease 2019; E87.2 Acidosis; Z85.038 Personal history of other malignant neoplasm of large intestine; K76.0 Fatty (change of) liver, not elsewhere classified; G89.29 Other chronic pain; Z90.49 Acquired absence of other specified parts of digestive tract; R63.0 Anorexia; Z68.29 Body mass index [BMI] 29.0-29.9, adult
CPT/HCPCS: 36415; 71045-TC; 80048-TC; 80076-TC; 81001; 82728-TC; 83605-TC; 83735-TC; 84100-TC; 84484-TC; 85025-TC; 85378-TC; 85610-TC; 85730-TC; 86140-TC; 87040-TC; 87081-TC; 87086-TC; A4216; C9803; G0378; J0696; J1100; J1650; J1885; J7030; J7050; J7060; Q9967